=== PATIENT | male | born 1955 | race Caucasian/White ===

== ENCOUNTER 2025-10-21 10:00 | Inpatient (IN) | payer MEDICARE, OTHER ==
[~2025-10-21] VITALS: Ht 180.3 cm; Wt 90.7 kg
[2025-10-21 10:49] LABS: CALCIUM, SERUM 9.0 mg/dL (8.5-10.1); CREATININE 2.7 mg/dL (0.6-1.3); SODIUM SERUM 138.0 mmol/L (136-145); UREA NITROGEN, BLOOD 62.0 mg/dL (7-18)
[2025-10-21] MEDS ORDERED: NIFE20CA PO (10:52)
[2025-10-21] MEDS ORDERED: OLME5TAB6 PO (10:52)
[2025-10-21] MEDS ORDERED: METO25TA6 PO (10:52)
[2025-10-21 11:10] LABS: PLATELET COUNT (AUTO) 348 K/uL (150-450); RED BLOOD CELL COUNT(AUTO) 3.96 MIL/uL (4.5-6.0); RED CELL DISTRIBUTION WIDTH 15.3 % (11.5-15.0)
[2025-10-21 11:15] LABS: LACTIC ACID 2.2 mmol/L (0.4-2.0)
[2025-10-21 11:17] LABS: ERYTHROCYTE SEDIMENTATION RATE 54 MM/HR (0-20)
[2025-10-21 11:26] LABS: WHITE BLOOD COUNT (AUTO) 36.2 K/uL (4.3-11.0)
[2025-10-21 11:53] LABS: LYMPHOCYTES % (MANUAL) 2 % (16-48); MONOCYTES % (MANUAL) 5 % (0-11.0); NEUTROPHILS % (MANUAL) 93 (42-76); PLATELET ESTIMATE ADEQUATE
[2025-10-21] MEDS: IV NS 0.9% 1,000 ML BAG IV ONE (12:10)
[2025-10-21] MEDS: CEFEPIME 1 GM in IV D5W 50 ML IV ONE (12:16)
[2025-10-21] MEDS ORDERED: ACETAMINOPHEN 325 MG TABLET PO PRN (12:30)
[2025-10-21] MEDS ORDERED: DOSING PER PHARMACY-VANCOMYCIN IV XX PRN (12:30)
[2025-10-21] MEDS ORDERED: ONDANSETRON HCL/PF 4 MG/2 ML VIAL IVP PRN (12:30)
[2025-10-21] MEDS ORDERED: DOSING PER PHARMACY-CEFEPIME IVPB XX PRN (12:30)
[2025-10-21] MEDS: VANCOMYCIN 1 GM in IV D5W 250 ML IV ONE (12:47)
[2025-10-21] MEDS ORDERED: IOHEXOL-300 100 ML VIAL IV ONE (13:05)
[2025-10-21] MEDS ORDERED: CT SWABBABLE VALVE TRANS SET 1 EA INFUS.SET MC ONE (13:05)
[2025-10-21] MEDS ORDERED: IV NS 0.9% 250 ML IV ONE (13:05)
[2025-10-21 14:30] VITALS: BP 106/69; TEMP 97.5; O2SAT 98
[2025-10-21] MEDS: IV NS 0.9% 1,000 ML IV SCH (15:21)
[2025-10-21] MEDS: METRONIDAZOLE 500MG/ NS 100ML 500 MG in PREMIX 1 EA IV SCH (15:22)
[2025-10-21 15:42] LABS: LACTIC ACID REFLEX 1.2 mmol/L (0.4-1.9)
[2025-10-21] MEDS: VANCOMYCIN HCL 1.25 GM in IV D5W 250 ML IV ONE (16:21)
[2025-10-21 20:00] VITALS: BP 95/55; TEMP 98.2; O2SAT 95
[2025-10-21] MEDS: HEPARIN SODIUM, PORCINE 5000 UNITS/1 ML VIAL SQ SCH (21:00)
[2025-10-21] MEDS: MORPHINE SULFATE INJ 2 MG/ML DISP.SYRIN IV PRN (23:31)
[2025-10-21] MEDS: CEFEPIME 1 GM in IV D5W 50 ML IV SCH (23:31)
[2025-10-21 23:40] LABS: HIV-1/2 ANTIBODY NON REACTIVE (NONREACTIVE)
[2025-10-22] MEDS ORDERED: IV PREMIX D5 1/2NS + KCL 1,000 ML IV PRN (01:30)
[2025-10-22] MEDS: IV D5/ 0.9% NACL 1,000 ML IV SCH (02:10)
[2025-10-22 04:00] VITALS: BP 96/57; TEMP 97.9; O2SAT 97
[2025-10-22 06:32] LABS: ASPARTATE AMINOTRANSFERASE 23.0 U/L (15-37); CALCIUM, SERUM 8.4 mg/dL (8.5-10.1); CREATININE 1.5 mg/dL (0.6-1.3); PHOSPHORUS 4.4 mg/dL (2.5-4.9); SODIUM SERUM 140.0 mmol/L (136-145); TOTAL PROTEIN, SERUM 5.7 g/dL (6.4-8.2); UREA NITROGEN, BLOOD 51.0 mg/dL (7-18)
[2025-10-22 06:41] LABS: INR 1.2 (0.91-1.10)
[2025-10-22 06:46] LABS: PLATELET COUNT (AUTO) 263 K/uL (150-450); RED BLOOD CELL COUNT(AUTO) 3.61 MIL/uL (4.5-6.0); RED CELL DISTRIBUTION WIDTH 14.9 % (11.5-15.0); WHITE BLOOD COUNT (AUTO) 14.7 K/uL (4.3-11.0)
[2025-10-22] MEDS ORDERED: FENTANYL PF 250MCG/5ML AMPUL ONE (07:52)
[2025-10-22] MEDS ORDERED: VASOPRESSIN INJ 20 UNIT/ML VIAL ONE (07:53)
[2025-10-22] MEDS ORDERED: MIDAZOLAM HCL 2 MG/2ML VIAL ONE (07:53)
[2025-10-22 08:00] VITALS: BP 103/59; TEMP 98.4; O2SAT 98
[2025-10-22] MEDS ORDERED: EPINEPHRINE (1:10,000) SYRINGE 1 MG/10 ML DISP.SYRIN ONE (08:54)
[2025-10-22] MEDS ORDERED: EPINEPHRINE (1:1000) 1 MG/ML AMPUL ONE (08:55)
[2025-10-22] MEDS ORDERED: ALBUMIN 5% 250 ML IV ONE (08:59)
[2025-10-22] MEDS: LOSARTAN POTASSIUM 50 MG TABLET PO SCH (09:00)
[2025-10-22] MEDS: NIFEdipine XL (30MG) 30 MG TAB PO SCH (09:00)
[2025-10-22] MEDS: METOPROLOL TARTRATE 25 MG TABLET PO SCH (09:00)
[2025-10-22] MEDS ORDERED: HYDROMORPHONE 1 MG/1 ML DISP.SYRIN ONE (09:45)
[2025-10-22] MEDS ORDERED: FENTANYL PF 100MCG/2ML AMPUL ONE ×2 (09:49→10:01)
[2025-10-22] MEDS ORDERED: MORPHINE SULFATE INJ 4 MG/ML DISP.SYRIN ONE ×2 (10:11→10:21)
[2025-10-22] MEDS ORDERED: HYDROMORPHONE INJ 2 MG/ML DISP.SYRIN IV PRN (10:30)
[2025-10-22 10:50] VITALS: BP 93/57; TEMP 97.5; O2SAT 97
[2025-10-22] MEDS: IV D5/ 0.9% NACL 1,000 ML IV PRN (11:36)
[2025-10-22] MEDS: ACETAMINOPHEN 325 MG TABLET PO SCH (12:38)
[2025-10-22] MEDS: MORPHINE SULFATE INJ 2 MG/ML DISP.SYRIN IV PRN (12:40)
[2025-10-22] MEDS: VANCOMYCIN HCL 1.25 GM in IV D5W 250 ML IV SCH (15:31)
[2025-10-22 16:00] VITALS: BP 116/92; TEMP 97.7; O2SAT 98
[2025-10-22 20:00] VITALS: BP 109/65; TEMP 97.6; O2SAT 96
[2025-10-23] MEDS ORDERED: VANCOMYCIN HCL 1.25 GM in IV D5W 250 ML IV SCH (02:00)
[2025-10-23 08:00] VITALS: BP 120/69; TEMP 97.5; O2SAT 99
[2025-10-23 13:28] LABS: ASPARTATE AMINOTRANSFERASE 18.0 U/L (15-37); CALCIUM, SERUM 7.9 mg/dL (8.5-10.1); CREATININE 1.2 mg/dL (0.6-1.3); PHOSPHORUS 3.6 mg/dL (2.5-4.9); SODIUM SERUM 148.0 mmol/L (136-145); TOTAL PROTEIN, SERUM 5.7 g/dL (6.4-8.2); UREA NITROGEN, BLOOD 33.0 mg/dL (7-18)
[2025-10-23 13:32] LABS: CREATINE KINASE, TOTAL 30.0 U/L (39-308)
[2025-10-23 13:36] LABS: PLATELET COUNT (AUTO) 255 K/uL (150-450); RED BLOOD CELL COUNT(AUTO) 3.45 MIL/uL (4.5-6.0); RED CELL DISTRIBUTION WIDTH 15.4 % (11.5-15.0); WHITE BLOOD COUNT (AUTO) 9.4 K/uL (4.3-11.0)
[2025-10-23] MEDS: oxyCODONE IR immediate release 5 MG TABLET PO PRN (13:39)
[2025-10-23] MEDS: SILVER SULFADIAZINE 50 GM JAR TP PRN (15:40)
[2025-10-23 16:00] VITALS: BP 127/74; TEMP 97.5; O2SAT 100
[2025-10-23 20:00] VITALS: BP 112/69; TEMP 97.5; O2SAT 100
[2025-10-24 08:00] VITALS: BP 132/84; TEMP 97.5; O2SAT 99
[2025-10-24 08:26] LABS: PLATELET COUNT (AUTO) 253 K/uL (150-450); RED BLOOD CELL COUNT(AUTO) 3.63 MIL/uL (4.5-6.0); RED CELL DISTRIBUTION WIDTH 15.2 % (11.5-15.0); WHITE BLOOD COUNT (AUTO) 7.7 K/uL (4.3-11.0)
[2025-10-24 08:36] LABS: CALCIUM, SERUM 8.4 mg/dL (8.5-10.1); CREATININE 1.2 mg/dL (0.6-1.3); SODIUM SERUM 147.0 mmol/L (136-145); UREA NITROGEN, BLOOD 22.0 mg/dL (7-18)
[2025-10-24] MEDS: oxyCODONE IR immediate release 5 MG TABLET PO PRN (11:31)
[2025-10-24 16:00] VITALS: BP 129/75; TEMP 97.5; O2SAT 97
[2025-10-24 20:00] VITALS: BP 123/69; TEMP 98.1; O2SAT 99
[2025-10-25 06:11] LABS: PTH, INTACT 13 pg/mL (15-65)
[2025-10-25 08:00] VITALS: BP 134/76; TEMP 97.9; O2SAT 98
[2025-10-25 16:00] VITALS: BP 131/72; TEMP 98.1; O2SAT 98
[2025-10-25 20:00] VITALS: BP 120/67; TEMP 97.7; O2SAT 98
[2025-10-26 07:22] LABS: PLATELET COUNT (AUTO) 276 K/uL (150-450); RED BLOOD CELL COUNT(AUTO) 3.74 MIL/uL (4.5-6.0); RED CELL DISTRIBUTION WIDTH 15.2 % (11.5-15.0); WHITE BLOOD COUNT (AUTO) 7.0 K/uL (4.3-11.0)
[2025-10-26 07:42] LABS: CALCIUM, SERUM 8.2 mg/dL (8.5-10.1); CREATININE 1.0 mg/dL (0.6-1.3); SODIUM SERUM 145.0 mmol/L (136-145); UREA NITROGEN, BLOOD 14.0 mg/dL (7-18)
[2025-10-26 08:00] VITALS: BP 123/79; TEMP 97.5; O2SAT 97
[2025-10-26] MEDS ORDERED: AMOX-430 PO ×2 (09:36→12:04)
[2025-10-26] MEDS ORDERED: DOXY-326 PO ×2 (09:36→12:04)
[2025-10-26] MEDS ORDERED: OXYC-121 PO (09:36)
[2025-10-26] MEDS: METRONIDAZOLE 500 MG TABLET PO SCH (12:18)
[2025-10-26] MEDS: HYDROMORPHONE 1 MG/1 ML DISP.SYRIN IV PRN (15:56)
[2025-10-26 16:00] VITALS: BP 123/82; TEMP 97.5; O2SAT 98
[2025-10-26 16:08] LABS: *HCV QUANTITATION 19700 IU/mL (.); *HCV log10 4.294 (.)
[2025-10-26 20:00] VITALS: BP 123/76; TEMP 97.5; O2SAT 97
[2025-10-26] MEDS: MORPHINE SULFATE SR 15 MG TABLET.SA PO SCH (20:12)
[2025-10-27 07:00] VITALS: BP 124/77; TEMP 97.5; O2SAT 99
[2025-10-27 08:22] VITALS: BP 125/68
[2025-10-27] MEDS: SILVER SULFADIAZINE CREAM 400 GM JAR TP SCH (09:17)
[2025-10-27] MEDS ORDERED: CEFEPIME 2 GM in IV D5W 100 ML IV SCH (12:00)
[2025-10-28 04:07] LABS: *SPE A/G RATIO 0.6 (0.7-1.7); *SPE ALBUMIN 1.9 g/dL (2.9-4.4); *SPE ALPHA-1-GLOBULIN 0.4 g/dL (0.0-0.4); *SPE ALPHA-2-GLOBULIN 0.8 g/dL (0.4-1.0); *SPE BETA GLOBULIN 0.7 g/dL (0.7-1.3); *SPE GLOBULIN, TOTAL 3.0 g/dL (2.2-3.9); *SPE M-SPIKE Not Observed g/dL (Not Observed); *SPE PROTEIN TOTAL 4.9 g/dL (6.0-8.5); *SPEGAMMA GLOBULIN 1.0 g/dL (0.4-1.8)
== END 2025-10-27 10:00 | disposition home health service (06) | DRG 853 ==
LOC: ER 10:05 → MED 13:30
PROVIDERS: ADMIT Internal Medicine; ATTEND Internal Medicine
PROC: 0JBN0ZZ Excision of Right Lower Leg Subcutaneous Tissue and Fascia, Open Approach (ICD-10-PCS; principal; 2025-10-22 08:00)
DX: A41.9 Sepsis, unspecified organism (principal); N17.0 Acute kidney failure with tubular necrosis; L03.115 Cellulitis of right lower limb; L03.116 Cellulitis of left lower limb; R65.20 Severe sepsis without septic shock; I10 Essential (primary) hypertension; D64.9 Anemia, unspecified; B19.20 Unspecified viral hepatitis C without hepatic coma; Z87.828 Personal history of other (healed) physical injury and trauma; Z98.890 Other specified postprocedural states; Z79.899 Other long term (current) drug therapy; M89.8X9 Other specified disorders of bone, unspecified site; Z88.1 Allergy status to other antibiotic agents
CPT/HCPCS: 36415; 71045-TC; 73590-TC; 73700-TC; 73701-TC; 76770-TC; 80048-TC; 80053-TC; 80202-TC; 82247-TC; 82248-TC; 82550-TC; 83605-TC; 83735-TC; 83970; 84100-TC; 84155; 84165; 85025-TC; 85027-TC; 85610-TC; 85652-TC; 85730-TC; 86140-TC; 86803; 86850-TC; 87040-TC; 87070-TC; 87075-TC; 87081-TC; 87102-TC; 87116; 87186-TC; 87206; 87522; 87806; A4216; A4217; A4223; A6223; A6253; A6403; G0378; J0169; J0690; J0692; J1171; J1644; J2250; J2270; J2704; J3010; J3373; J3490; J7030; J7042; J7050; J7060; P9045; Q9967